=== PATIENT | female | born 1975 | race Caucasian/White ===

== ENCOUNTER 2021-08-22 14:05 | Emergency (ER) | payer OTHER ==
[~2021-08-22] VITALS: Ht 167.6 cm; Wt 102.1 kg
[2021-08-22 16:52] VITALS: BP 124/77
[2021-08-22] MEDS ORDERED: NEOMYCIN/POLYMYXIN/HC OTIC SUSP 10ML BOTTLE ONE (16:55)
[2021-08-22] MEDS ORDERED: ACETAMINOPHEN WITH CODEINE 1 TAB TAB PO ONE (17:00)
[2021-08-22] MEDS ORDERED: NEOMYCIN/POLYMYXIN/HC OTIC SUSP 10ML BOTTLE AD SCH (17:00)
== END 2021-08-22 17:12 | disposition home or self-care (01) ==
LOC: EDH 14:05
DX: H92.02 Otalgia, left ear (principal)